=== PATIENT | male | born 1960 | race African-American/Black ===

== ENCOUNTER 2019-05-11 09:39 | Emergency (ER) | payer MEDICAID ==
[~2019-05-11] VITALS: Ht 185.4 cm; Wt 100.2 kg
[2019-05-11] MEDS ORDERED: cloNIDine HCL 0.1 MG TAB PO ONE (10:00)
[2019-05-11 10:11] LABS: Basophils # (auto) 0 uL; Basophils % (auto) 0.4 % (0.0-2.0); Eosinophils # (auto) 0.1 uL; Eosinophils % (auto) 0.6 % (0.0-7.0); Hematocrit 46.8 % (41.0-53.0); Hemoglobin 15.5 g/dL (13.5-17.5); Lymphocytes # (auto) 2.5 uL; Lymphocytes % (auto) 24.2 % (10.0-50.0); Mean Corpuscular Hemoglobin 29.5 pg (28.0-32.0); Mean Corpuscular Hgb Conc. 33.1 g/dL (32.0-36.0); Mean Corpuscular Volume 89.1 fL (80.0-100.0); Monocytes # (auto) 0.8 uL; Monocytes % (auto) 8.1 % (0.0-12.0); Neutrophils # (auto) 6.8 uL; Neutrophils % (auto) 66.7 % (37.0-80.0); Nucleated Red Blood Cells % 0.1 %; Platelet Count (auto) 274 10^3/uL (140-450); Red Blood Cells 5.25 10^6/uL (4.5-5.90); Red Cell Distribution Width 15.3 % (11.8-14.3); White Blood Cell 10.1 10^3/uL (4.4-10.8)
[2019-05-11 10:34] LABS: Albumin 3.8 g/dL (3.4-5.0); Anion Gap 3 (5-15); Blood Urea Nitrogen 7 mg/dL (7-18); Calcium 9.1 mg/dL (8.5-10.1); Carbon Dioxide 31 mmol/L (21-32); Chloride 106 mmol/L (98-107); Glucose 92 mg/dL (74-106); Sodium 140 mmol/L (136-145)
[2019-05-11 10:38] LABS: Alanine Aminotransferase 21 U/L (16-61); Alkaline Phosphatase 70 U/L (45-117); Aspartate Aminotransferase 16 U/L (15-37); BUN/Creatinine Ratio 8.2; Bilirubin, Total 0.5 mg/dL (0.2-1.0); GFR African American 120 mL/min; GFR Non-African American 99 mL/min; Total Protein 7.6 g/dL (6.4-8.2)
[2019-05-11 10:45] VITALS: BP 130/93
[2019-05-11] MEDS ORDERED: ALBUTEROL SULF 2.5 MG/0.5ML(0.5%) NEB SOLN NEB ONE (10:45)
[2019-05-11] MEDS ORDERED: cefTRIAXone W LIDOCAINE 1 GM IM IM ONE (10:45)
[2019-05-11] MEDS ORDERED: IPRATROPIUM BROM 0.5 MG/2.5ML INH SOL NEB ONE (10:45)
[2019-05-11] MEDS ORDERED: cefTRIAXone SOD 1,000 MG VL ONE (10:48)
[2019-05-11] MEDS ORDERED: MECLIZINE HCL 25 MG TAB PO ONE (11:15)
== END 2019-05-11 12:35 | disposition home or self-care (01) ==
LOC: ER 09:39
DX: J40 Bronchitis, not specified as acute or chronic (principal); F12.90 Cannabis use, unspecified, uncomplicated; R42 Dizziness and giddiness; I10 Essential (primary) hypertension
CPT/HCPCS: 36415; 70450; 71045; 80053; 83880; 84484; 85025; 93005; 94640; 96372; 99285; J0696; J7611; J7644; J8597

== ENCOUNTER 2019-07-26 13:01 | Emergency (ER) | payer MEDICAID ==
[~2019-07-26] VITALS: Ht 185.4 cm; Wt 101.6 kg
[2019-07-26 13:12] VITALS: BP 142/95
[2019-07-26] MEDS ORDERED: TETRACAINE HCL 0.5% OPTH(EYE) SOLN 4ML EACHEYE ONE (13:45)
[2019-07-26] MEDS ORDERED: FLUORESCEIN SOD 1 MG TEST STRIP OP ONE (13:45)
== END 2019-07-26 14:55 | disposition home or self-care (01) ==
LOC: ER 13:01
DX: S05.02XA Injury of conjunctiva and corneal abrasion without foreign body, left eye, initial encounter (principal); I10 Essential (primary) hypertension; F17.210 Nicotine dependence, cigarettes, uncomplicated; W22.8XXA Striking against or struck by other objects, initial encounter; Y93.89 Activity, other specified; Y92.89 Other specified places as the place of occurrence of the external cause; Y99.8 Other external cause status
CPT/HCPCS: 70160

== ENCOUNTER 2021-07-28 07:03 | Emergency (ER) | payer MEDICAID, OTHER ==
[~2021-07-28] VITALS: Ht 185.4 cm; Wt 104.3 kg
[2021-07-28] MEDS ORDERED: KETOROLAC TROMETH 30 MG/ML 1ML VIAL IV ONE (08:00)
[2021-07-28 08:36] VITALS: BP 140/96
[2021-07-28] MEDS ORDERED: BACL10TA PO (09:02)
== END 2021-07-28 09:16 | disposition home or self-care (01) ==
LOC: ER 07:03 → EDBD 07:03 → ER 09:15
DX: S43.402A Unspecified sprain of left shoulder joint, initial encounter (principal); S20.212A Contusion of left front wall of thorax, initial encounter; E11.9 Type 2 diabetes mellitus without complications; I10 Essential (primary) hypertension; F17.210 Nicotine dependence, cigarettes, uncomplicated; V49.9XXA Car occupant (driver) (passenger) injured in unspecified traffic accident, initial encounter; Y93.89 Activity, other specified; Y92.488 Other paved roadways as the place of occurrence of the external cause; Y99.8 Other external cause status
CPT/HCPCS: 71046; 73030; 96374; 99284; J1885

== ENCOUNTER 2022-12-15 15:31 | Emergency (ER) | payer MEDICAID ==
[~2022-12-15] VITALS: Ht 185.4 cm; Wt 106.9 kg
[~2022-12-15 15:31] MED LIST: BACL10TA PO
[2022-12-15 16:11] VITALS: BP 113/62; PULSE 101; RESP 20; TEMP 98; O2SAT 95
[2022-12-15] MEDS ORDERED: OXYMETAZOLINE HCL 0.05 % NASAL SPRAY 15ML EACHNOSTRI ONE (16:30)
== END 2022-12-15 17:16 | disposition home or self-care (01) ==
LOC: ER 15:31
DX: R04.0 Epistaxis (principal); I10 Essential (primary) hypertension; E11.9 Type 2 diabetes mellitus without complications; F17.210 Nicotine dependence, cigarettes, uncomplicated; Z79.899 Other long term (current) drug therapy
CPT/HCPCS: 30901